=== PATIENT | female | born 1980 | race Hispanic/Latino ===

== ENCOUNTER 2019-01-07 08:17 | Emergency (ER) | payer BC ==
[~2019-01-07] VITALS: Ht 175.3 cm; Wt 104.3 kg
--- OUTSIDE RECORDS SUMMARY | 2019-01-07 08:19 | XMS REPORT | Clinical Summary ---
Author Author [facility] Organization [facility] Address Unknown Phone Unavailable Care Team Providers Care Primary Care Provider Name Role Phone Asked, No Pcp PCP Unavailable Allergies No Known Allergies Medications End Date Status Medication Sig Dispensed Refills Start Date 08/05/2018 amoxicillin-pot Take 1 tablet 14 tablet 0 clavulanate (AUGMENTIN) by mouth 2 8 875-125 mg per tablet (two) times a day for 7 days. 08/28/2018 chlorhexidine (PERIDEX) Apply 15 mL 900 mL 0 0.12 % solution to the mouth 8 or throat 2 (two) times a day for 30 days. Active Problems Problem Noted Date Jaw deformity 07/29/2018 Encounters Care Team Description Date Type Specialty [place] Maya NP 07/29/2018 Anesthesia Orthopedic Surgery Event Crispin Abdi DDS OSTEOPLASTY MAXILLA LE FORT 1 TWO PIECE WITHOUT GRAFT ( MODIFIED ) 07/29/2018 Surgery Orthopedic Surgery Crispin Abdi DDS 07/29/2018 Hospital Orthopedic Surgery Encounter after 01/06/2018 Social History Date Tobacco Use Types Packs/Day Years Used Current Every Day Smoker Cigarettes 0.25 21 Smokeless Tobacco: Never Used Comments: smokes 0-2 cigs per day Alcohol Use Drinks/Week oz/Week Comments No Sex Assigned at Date Recorded Not on file Industry Job Start Date Occupation Not on file Not on file Not on file Travel End Travel History Travel Start No recent travel history available. Last Filed Vital Signs Time Taken Vital Sign Reading 07/29/2018 10:56 AM CDT Blood Pressure 147/87 07/29/2018 10:56 AM CDT Pulse 93 07/29/2018 10:56 AM CDT Temperature 36.2 C (97.2 F) 07/29/2018 10:56 AM CDT Respiratory Rate 21 07/29/2018 10:56 AM CDT Oxygen Saturation 93% - Inhaled Oxygen - Concentration 07/29/2018 6:34 AM CDT Weight 106 kg (233 lb 6 oz) 07/29/2018 6:34 AM CDT Height 175.3 cm (5' 9") 07/29/2018 6:34 AM CDT Body Mass Index 34.46 Plan of Treatment Not on file Procedures Comments Procedure Name Priority Date/Time Associated Diagnosis ANESTHESIA INTUBATION Routine 07/29/2018 8:15 AM CDT Procedure Note - Enoch Levin CRNA - 07/29/2018 8:15 AM CDT Airway Performed by: ENOCH LEVIN Authorized by: ROSIE WALL Location: OR Resident/C RNA/AA: ENOCH LEVIN Preoxygena jojo with 100% O2: Yes C-spine Precaution s Maintained Throughout : Yes Mask Ventilatio n: Easy mask Final Airway Type: Endotrache al airway Final Endotrache al Airway: ETT Cuffed: Yes Technique Used: Direct laryngosco py Devices/Me thods Used in Placement: Intubatin g stylet Insertion Site: Oral Blade Type: Daisy Laryngosco pe Blade/Vide olaryngosc ope Blade Size: 3 ETT Size (mm): 7.0 Cuff at minimum occlusion pressure: Yes Measured from: Lips ETT to Lips (cm): 23 Placement Verified by: CO2 detection Laryngosc opic view: Grade IIb - view of arytenoids or posterior of glottis only Number of Attempts at Approach: 1 Eyes taped on LOC, Easy BMV. DL x 1 with MAC 3 - Oral mucosa and dentition intact (several minutes of ventilatio n d/t rapid desaturati on) OSTEOTOMY, LE FORT 07/29/2018 Maxillary hypoplasia 7:15 AM CDT Case Notes EST 2HRS, POSS EXTENDED RECOVERY NEEDED Special Needs EST 2HRS, POSS EXTENDED RECOVERY NEEDED TYPE AND SCREEN Routine 07/29/2018 6:50 AM CDT HC COMPLETE BLD COUNT Routine 07/29/2018 W/AUTO DIFF 6:50 AM CDT after 01/06/2018 Results * CBC with platelet and differential (07/29/2018 6:50 AM CDT) WBC 12.01 (H) 4.50 - 11.00 k/uL [facility] DEPARTMENT OF PATHOLOGY [facility] GENOMIC MEDICINE RBC 4.90 4.20 - 5.50 m/uL [facility] DEPARTMENT OF PATHOLOGY AND GENOMIC MEDICINE HGB 13.9 12.0 - 16.0 g/dL [facility] DEPARTMENT OF PATHOLOGY AND GENOMIC MEDICINE HCT 43.1 37.0 - 47.0 % [facility] DEPARTMENT OF PATHOLOGY AND GENOMIC MEDICINE MCV 88.0 82.0 - 100.0 fL [facility] DEPARTMENT OF PATHOLOGY AND GENOMIC MEDICINE MCH 28.4 27.0 - 34.0 pg [facility] DEPARTMENT OF PATHOLOGY AND GENOMIC MEDICINE MCHC 32.3 31.0 - 37.0 g/dL [facility] DEPARTMENT OF PATHOLOGY AND GENOMIC MEDICINE RDW - SD 45.4 37.0 - 55.0 fL [facility] DEPARTMENT OF PATHOLOGY AND GENOMIC MEDICINE MPV 11.5 8.8 - 13.2 fL [facility] DEPARTMENT OF PATHOLOGY AND GENOMIC MEDICINE Platelet count 286 150 - 400 k/uL [facility] DEPARTMENT OF PATHOLOGY AND GENOMIC MEDICINE Neutrophils 82.9 (H) 39.0 - 69.0 % [facility] DEPARTMENT OF PATHOLOGY AND GENOMIC MEDICINE Lymphocytes 15.3 (L) 25.0 - 45.0 % [facility] DEPARTMENT OF PATHOLOGY AND GENOMIC MEDICINE Monocytes 1.6 0.0 - 10.0 % [facility] DEPARTMENT OF PATHOLOGY AND GENOMIC MEDICINE Eosinophils 0.0 0.0 - 5.0 % [facility] DEPARTMENT OF PATHOLOGY AND GENOMIC MEDICINE Basophils 0.2 0.0 - 1.0 % [facility] DEPARTMENT OF PATHOLOGY AND GENOMIC MEDICINE Performing Organization Address City/State/[place] [address] PATHOLOGY AND GENOMIC MEDICINE * Type and screen (07/29/2018 6:50 AM CDT) ABO grouping O [facility] DEPARTMENT OF PATHOLOGY AND GENOMIC MEDICINE Rh type POS [facility] DEPARTMENT OF PATHOLOGY AND GENOMIC MEDICINE Antibody screen (gel) NEG [facility] DEPARTMENT OF PATHOLOGY AND GENOMIC MEDICINE Performing Organization Address City/[facility]/[place] [address] PATHOLOGY AND GENOMIC MEDICINE after 01/06/2018 Insurance Payer Benefit Subscriber ID Type Phone Address Plan / Group BCBS BCBS xxxxxxxxxxxx PPO CHOICE PPO/NIKKI DAWN PPO Advance Directives Patient has advance care planning documents on file. For more information, jos jolley contact: Oscar Green [address] [place] [address]
== END 2019-01-07 09:02 | disposition home or self-care (01) ==
LOC: FSED 08:17
DX: L02.31 Cutaneous abscess of buttock (principal)
CPT/HCPCS: 99282